=== PATIENT | male | born 1960 | race Caucasian/White ===

== ENCOUNTER 2019-02-01 22:24 | Outpatient (CLI) | payer BC, OTHER | END 2019-02-01 22:25 | disposition critical access hospital (66) | LOC: EMS 22:24 | PROVIDERS: ATTEND Surgery | DX: K92.0 Hematemesis (principal) | CPT/HCPCS: A0425; A0427 ==

== ENCOUNTER 2019-02-01 23:16 | Emergency (ER) | payer BC, OTHER ==
[2019-02-01] MEDS ORDERED: MIDAZOLAM 2 MG/2 ML VIAL ONE (23:20)
[2019-02-01] MEDS ORDERED: PROPOFOL 1000 MG/100 ML 0 ML IV ONE (23:20)
[2019-02-01] MEDS ORDERED: KETAMINE 500 MG/10 ML VIAL ONE (23:20)
[2019-02-01] MEDS ORDERED: ETOMIDATE 40 MG/20 ML VIAL IVP ONE (23:20)
[2019-02-01] MEDS ORDERED: ROCURONIUM 50 MG/5 ML VIAL IVP ONE (23:21)
[2019-02-01] MEDS ORDERED: PROPOFOL 200 MG/20 ML VIAL IVP ONE (23:21)
[2019-02-01] MEDS ORDERED: SUCCINYLCHOLINE 200 MG/10 ML VIAL ONE (23:21)
[2019-02-01] MEDS ORDERED: ONDANSETRON 4 MG/2 ML VIAL IVP STA (23:26)
[2019-02-01] MEDS ORDERED: SODIUM CHLORIDE 0.9% 1,000 ML IV ONE ×2 (23:26)
[2019-02-01] MEDS ORDERED: PANTOPRAZOLE 40 MG VIAL IV STA (23:26)
[2019-02-01] MEDS ORDERED: fentaNYL 100 MCG/2 ML VIAL IVP STA (23:33)
--- NOTE | 2019-02-01 23:36 | ED Physician Documentation ---
History of Present Illness - Stated complaint Stated Complaint: VOMITING/ CARLSON - Chief complaint Chief Complaint: Abd Pain - History obtained from History obtained from: Patient, EMS - History of Present Illness Timing: Today Pain level max: 7 Pain level now: 6 - Additonal information Additional information: 58-year-old male with an undiagnosed autoimmune disease. States he had a pancreatic pseudocyst that had a stent placed last week at [facility]. Is scheduled to have it taken out tomorrow. States started vomiting dark blood tonight. Is having abdominal pain as well. Nothing makes it better or worse. Review of Systems Constitutional: denies: Fever GI: reports: Abdominal Pain, Vomiting, Hematemesis PD PAST MEDICAL HISTORY - Past Medical History Past Medical History: Yes GI: Pancreatitis - Allergies Allergies/Adverse Reactions: Allergies Allergy/AdvReac Type Severity Reaction Status Date / Time No Known Drug Allergies Allergy Verified 02/01/19 23:27 - Living Situation Living Arrangement: reports: At home - Social History Does the pt drink ETOH?: No Does the pt have substance abuse?: No - Family History Family history: reports: Non contributory PD ED PE NORMAL - Vitals Vital signs reviewed: Yes - General General: Alert and oriented X 3, Other (pale) - HEENT HEENT: Moist mucous membranes - Neck Neck: Supple, no meningeal sign - Cardiac Cardiac: Other (tachycardic) - Respiratory Respiratory: No respiratory distress, Clear bilaterally - Abdomen Abdomen: Soft, Other (Diffusely tender to palpation.) - Derm Derm: Warm and dry - Extremities Extremities: No edema - Neuro Neuro: Alert and oriented X 3 - Psych Psych: Normal mood, Normal affect Results - Vitals Vitals: Vital Signs - 24 hr 02/01/19 02/01/19 02/01/19 23:18 23:28 23:37 Temperature 36.1 C L 37.7 C H Heart Rate 124 H 125 H 115 H Respiratory 18 21 32 H Rate Blood Pressure 104/63 104/63 80/51 L O2 Saturation 90 L 93 02/01/19 02/01/19 02/01/19 23:42 23:46 23:47 Temperature 38.1 C H 38.1 C H 38.1 C H Heart Rate 113 H 108 H 109 H Respiratory 36 H 30 H 30 H Rate Blood Pressure 96/54 L 96/54 L 96/54 L O2 Saturation 96 Oxygen O2 Source Room air - Labs Labs: Laboratory Tests 02/01/19 02/01/19 02/01/19 23:30 23:30 23:30 WBC 8.4 RBC 4.60 L Hgb 13.0 L Hct 40.3 L MCV 87.6 MCH 28.3 MCHC 32.3 RDW 13.8 Plt Count 249 MPV 9.2 PT 15.5 H INR 1.4 H APTT 21.8 L Sodium 140 Potassium 4.0 Chloride 103 Carbon Dioxide 19 L Anion Gap 18.0 H BUN 27 H Creatinine 1.3 H Estimated GFR (MDRD) 57 L Glucose 163 H Calcium 8.7 Total Bilirubin 0.6 AST 24 ALT 19 Alkaline Phosphatase 68 Total Protein 6.6 L Albumin 3.0 L Globulin 3.6 Albumin/Globulin Ratio 0.8 L Lipase 79 H PD MEDICAL DECISION MAKING - ED course Complexity details: reviewed results, re-evaluated patient, considered differential, d/w patient ED course: 2329 - Call to [facility] for transfer [id number], call received from [facility], Dr. Tamez who graciously accepts in transfer. Patient will be transferred to the ER via [facility]. COBRA forms completed Patient was given IV fluids, Protonix, octreotide drip, packed red blood cells, tranexamic acid 1 g. Patient with significant upper GI bleed. Dr. Becker, general surgery was present upon the patient's arrival. He agrees that with her limited capabilities here, will likely not be able to control his bleeding adequately. It was decided that expeditious transfer would be in his best i nterest. Patient was transferred to [facility] in [place]. Patient is stabilized to the best of our capability here, but is still potentially unstable at the time of transfer. He will benefit more from the therapies available at [facility] than staying here to try to stabilize him further. Case was discussed with his as well. This document was made in part using voice recognition software. While efforts are made to proofread this document, sound alike and grammatical errors may occur. - Critical Care Time(min): 45 Time Includes: Direct patient care, Review records, Reassess patient, Document care, Coordinate care, Medical consult, See progress note Data interpretation: See progress note Procedures included in critical care time: See progress note Procedures excluded from critical care time: See progress note Departure - Departure Disposition: 02 Transfer Acute Care Hosp Clinical Impression: Upper GI bleed, Hemodynamically unstable Condition: Serious
[2019-02-01] MEDS ORDERED: TRANEXAMIC ACID 1,000 MG in SODIUM CHLORIDE 0.9% 100ML 100 ML IV STA (23:37)
[2019-02-01] MEDS ORDERED: OCTREOTIDE 500 MCG in SODIUM CHLORIDE 0.9% 100ML 95 ML IV STA (23:37)
--- NOTE | 2019-02-01 23:39 | CONSULTATION NOTE ---
Referring Provider Name of Referring Provider:: Dr. Yosef Lee Consult Date: 02/01/19 Chief Complaint - Chief Complaint Chief Complaint: Hematemesis, profound History of Present Illness - Admitted From Admitted From:: Not admitted, seen in the emergency department - History Obtained From Records Reviewed: None History obtained from: Some from patient, and paramedics Exam Limitations: Acuity of patient's illness - History of Present Illness HPI Comment/Other: Patient is a 58-year-old male who had a pancreatic pseudocyst drained into his GI tract endoscopically (of course I am assuming it is a cystgastrostomy) and the patient states that a stent was placed. The patient states that he was scheduled to have the stent removed tomorrow. He presented acutely with profound hematemesis as well as tachycardia and hypotension. He denies any previous alcohol history. He is on steroids for an autoimmune disease that he does not know the name of. Additionally the only other medication that he is on his lisinopril. History - Past Medical History Cardiovascular: reports: Hypertension Meds/Allgy - Allergies Allergies/Adverse Reactions: Allergies Allergy/AdvReac Type Severity Reaction Status Date / Time No Known Drug Allergies Allergy Verified 02/01/19 23:27 Review of Systems - Constitutional Constitutional: reports: Other (Not done to the acuity of patient's disease.) Exam - Vital Signs Vital Signs: Vital Signs x48h Temp Pulse Resp BP Pulse Ox 02/01/19 23:28 125 H 21 104/63 93 02/01/19 23:18 36.1 C L 124 H 18 104/63 90 L - Physical Exam General Appearance: positive: Severe distress, Other (Diaphoretic.) Eyes Bilateral: positive: No lid inflammation, Conjunctivae nml, No scleral icterus ENT: positive: Other (Blood in mouth and the patient actively vomited blood as we are watching him.) Neck: positive: Trachea midline Respiratory: positive: Other (Tachypneic.) Cardiovascular: positive: Tachycardia Abdomen: positive: Other (Mild distention no peritoneal findings.) Conclusion/Plan - Diagnosis Diagnosis: Hypotension and tachycardia due to profound blood loss secondary to cyst gastrostomy and stent placement (bleeding is a known complication) - Plan Plan: I have what he called for and the patient is receiving 2 units of uncrossed match blood due to his hypotension and tachycardia. Emergent transfer via helicopter for intervention endovascular hemostatic procedures versus hemostatic surgical procedure. These are not available at our hospital. This was discussed with patient and [facility] is standing by. Possibility of varices and/or an ulcer have been considered but are much less likely. Will give tr anexamic acid to see whether or not this helps control the bleeding. Dragon disclaimer: This document was created in part using voice recognition technology. Because of the inherent limitations of the system ([employer] user manual states that the licensee understands that speech recognition is a statistical process and that recognition errors are inherent in the process), occasional same sounding word substitutions and grammatical errors do occur and persist despite proofreading. Please read this document for context.
[2019-02-01 23:46] VITALS: BP 96/54
[2019-02-01 23:47] LABS: BASOPHILS % (AUTO) 0.2 %; EOSINOPHILS % (AUTO) 0.5 %; LYMPHOCYTES % (AUTO) 10.3 %; MEAN CORPUSCULAR HEMOGLOBIN 28.3 pg (27.0-31.0); MEAN CORPUSCULAR HGB CONC 32.3 g/dL (32.0-36.0); MEAN CORPUSCULAR VOLUME 87.6 fL (80.0-94.0); MEAN PLATELET VOLUME 9.2 fL (7.4-11.4); MONOCYTES % (AUTO) 0.6 %; NEUTROPHILS % (AUTO) 87.9 %; PLT - PLATELET COUNT 249 10^3/uL (130-450); RED CELL DISTRIBUTION WIDTH 13.8 % (12.0-15.0); WHITE BLOOD COUNT 8.4 x10^3/uL (4.8-10.8)
[2019-02-01 23:49] LABS: INR 1.4 (0.8-1.2); PT - PROTHROMBIN TIME 15.5 secs (9.9-12.6)
[2019-02-01 23:52] LABS: ABNORMAL LYMPHS % (MANUAL) 0 %; ALBUMIN/GLOBULIN RATIO 0.8 (1.0-2.2); BILIRUBIN,TOTAL 0.6 mg/dL (0.2-1.0); CALCIUM 8.7 mg/dL (8.5-10.3); CREATININE 1.3 mg/dL (0.6-1.2); TOTAL PROTEIN 6.6 g/dL (6.7-8.2)
[2019-02-01 23:57] LABS: PARTIAL THROMBOPLASTIN TIME 21.8 secs (24.9-33.3)
[2019-02-02 00:18] LABS: BAND NEUTROPHILS % (MANUAL) 22 %; EOSINOPHILS # (MANUAL) 0.1 10^3/uL (0-0.7); LYMPHOCYTES # (MANUAL) 1.2 10^3/uL (1.5-3.5); LYMPHOCYTES % (MANUAL) 14 %
[2019-02-02 00:19] LABS: DIFFERENTIAL COMMENT MANUAL DIFFERENTIAL; PLATELET ESTIMATE, MANUAL NORMAL (130-450,000) (NORMAL); PLATELET MORPHOLOGY NORMAL APPEARANCE (NORMAL); RBC MORPHOLOGY (MULTIPLE) NORMAL APPEARANCE (NORMAL)
== END 2019-02-01 23:53 | disposition short-term general hospital (02) ==
LOC: ED 23:16
DX: K92.0 Hematemesis (principal); T85.838A Hemorrhage due to other internal prosthetic devices, implants and grafts, initial encounter; Y83.8 Other surgical procedures as the cause of abnormal reaction of the patient, or of later complication, without mention of misadventure at the time of the procedure; I95.9 Hypotension, unspecified; R00.0 Tachycardia, unspecified; K86.3 Pseudocyst of pancreas; M35.9 Systemic involvement of connective tissue, unspecified; Z79.52 Long term (current) use of systemic steroids; I10 Essential (primary) hypertension
CPT/HCPCS: 36415; 36430; 80053; 83690; 85025; 85610; 85730; 86850; 86900; 86901; 86920; 96374; 96375; 99285; 99291; J2354